=== PATIENT | female | born 1975 | race Caucasian/White ===

== ENCOUNTER → 2016-05-09 | Outpatient (CLI) | payer BC | LOC: FIMAGING 07:59 | DX: Z12.31 Encounter for screening mammogram for malignant neoplasm of breast (principal); Z80.3 Family history of malignant neoplasm of breast | CPT/HCPCS: G0202 ==

== ENCOUNTER 2016-05-16 00:46 | Emergency (ER) | payer BC ==
[2016-05-16 00:54] VITALS: BP 127/80; PULSE 68; RESP 20; TEMP 98.1; O2SAT 95
--- NOTE | 2016-05-16 01:27 | EDPHY ---
H & P Stated Complaint: POS FLU A SUN, SAW MD PABLO, FEVER 102 BACK TONIGHT Time Seen by Provider: 05/16/16 01:07 HPI/ROS: HPI The patient presents with cough and fever for the last 7 days which became worse tonight. Her cough is dry, nonproductive, usually worse at night and tonight it was associated with a fever of 102. She is currently being treated with Tamiflu after a positive flu a testing several days ago. She feels she is not getting better. She has mild runny nose and sore throat. She does not have any chest pain or shortness of breath.. REVIEW OF SYSTEMS Constitutional: No fever, no chills. Eyes: No discharge. ENT: No sore throat. Cardiovascular: No chest pain, no palpitations. Respiratory: + cough, no shortness of breath. Gastrointestinal: No abdominal pain, no vomiting. Genitourinary: No hematuria. Musculoskeletal: No back pain. Skin: No rashes. Neurological: No headache. PMHx: Healthy Soc Hx: Nonsmoker PHYSICAL General Appearance: Alert, no distress Eyes: Pupils equal and round no pallor or injection ENT, Mouth: Mucous membranes moist Respiratory: There are no retractions, lungs are clear to auscultation Cardiovascular: Regular rate and rhythm Gastrointestinal: Abdomen is soft and non-tender, no masses, bowel sounds normal Neurological: A&O, moves all extremities Skin: Warm and dry, no rashes Musculoskeletal: Neck is supple non tender Extremities: symmetrical, full range of motion Psychiatric: Patient is oriented X 3, there is no agitation Source: Patient - Personal History LMP (Females 10-55): 8-14 Days Ago Current Tetanus/Diphtheria Vaccine: Yes - Medical/Surgical History Hx Asthma: No Hx Chronic Respiratory Disease: No Hx Diabetes: No Hx Cardiac Disease: No Hx Renal Disease: No Hx Cirrhosis: No Hx Alcoholism: No Hx HIV/AIDS: No Hx Splenectomy or Spleen Trauma: No Other PMH: NON [facility] LYMPHOMA 2014 - Social History Smoking Status: Never smoked Constitutional: Initial Vital Signs Temperature (C) 36.7 C 05/16/16 00:50 Heart Rate 68 05/16/16 00:50 Respiratory Rate 20 05/16/16 00:50 Blood Pressure 127/80 H 05/16/16 00:50 O2 Sat (%) 95 05/16/16 00:50 O2 Delivery Mode Room Air Allergies/Adverse Reactions: No Known Drug Allergies Allergy (Unknown, Verified 05/16/16 00:48) Unknown Home Medications: Medication Instructions Recorded Docusate Sodium [Colace 100 MG 100 mg PO DAILY 07/20/12 (OTC)] Doxylamine Succinate [Unisom Sleep 25 mg PO HS 07/20/12 Aid] Loratadine [Claritin 10 mg] 10 mg PO DAILY 07/20/12 diphenhydrAMINE [Benadryl 50 MG 50 mg PO HS 07/20/12 (OTC)] Azithromycin 250 mg PO DAILY #4 tablet 05/16/16 Levora-28 Tablet 05/16/16 Tamiflu 05/16/16 Tessalon Pearles 05/16/16 Medical Decision Making - Diagnostics Imaging: Chest x-ray two view shows peribronchial thickening, interpreted by me, radiology interpretation is pending. Differential Diagnosis: This is a 40-year-old female, currently undergoing treatment for influenza A with Tamiflu who presents with fever and cough, on day approximately 7 of her illness. Differential diagnosis includes pneumonia, bronchitis, symptoms of influenza. On exam, she is fairly well-appearing though was febrile. Chest x- ray was performed which showed peribronchial thickening, she could have underlying bronchitis or atypical pneumonia. I will treat her with azithromycin. She is to continue ibuprofen and Tylenol as needed and complete her course of Tamiflu. - Data Points Medications Given: Discontinued Medications Azithromycin (Zithromax) 500 mg PO EDNOW ONE PRN Reason: Protocol Stop: 05/16/16 01:29 Last Admin: 05/16/16 01:42 Dose: 500 mg Departure - Departure Disposition: Home, Routine, Self-Care Clinical Impression: Influenza A, Bronchitis Condition: Good Instructions: Influenza (ED) Referrals: Marge Cardona MD [Primary Care Provider] - As per Instructions Prescriptions: Azithromycin 250 mg PO DAILY #4 tablet
[2016-05-16] MEDS ORDERED: AZITHROMYCIN 250 MG TAB PO ONE (01:28)
== END 2016-05-16 01:44 | disposition home or self-care (01) ==
DX: J10.1 Influenza due to other identified influenza virus with other respiratory manifestations (principal); J20.9 Acute bronchitis, unspecified

== ENCOUNTER → 2017-05-13 | Outpatient (CLI) | payer OTHER | LOC: FIMAGING 07:36 | PROVIDERS: ATTEND Obstetrics & Gynecology | DX: Z12.31 Encounter for screening mammogram for malignant neoplasm of breast (principal); Z80.3 Family history of malignant neoplasm of breast; Z85.72 Personal history of non-Hodgkin lymphomas ==

== ENCOUNTER → 2017-05-23 | Outpatient (CLI) | payer OTHER | LOC: FIMAGING 12:11 | PROVIDERS: ATTEND Obstetrics & Gynecology | DX: Z12.31 Encounter for screening mammogram for malignant neoplasm of breast (principal) ==

== ENCOUNTER → 2018-05-19 | Outpatient (CLI) | payer OTHER | LOC: FIMAGING 07:49 | PROVIDERS: ATTEND Obstetrics & Gynecology | DX: Z12.31 Encounter for screening mammogram for malignant neoplasm of breast (principal); Z80.3 Family history of malignant neoplasm of breast ==